=== PATIENT | female | born 1975 | race Caucasian/White ===

== ENCOUNTER 2021-05-29 03:56 | Inpatient (IN) | payer OTHER ==
--- NOTE | 2021-05-29 05:06 | ED ---
Altered Mental Status HPI - General Chief Complaint: Altered Mental Status Stated Complaint: AMS Time Seen by Provider: 05/29/21 03:57 Source: patient, EMS, RN notes reviewed, old records reviewed Mode of arrival: EMS Limitations: altered mental status - History of Present Illness Initial Comments: This is a 46-year-old female to the emergency department. Patient presents today with significant altered mental status. Patient is focused on leave in [facility] emergency department currently. Unable to give accurate history secondary to possible ingestion versus withdrawal. Patient presents from [place] by EMS for inappropriate behavior. MD Complaint: altered mental status, confusion, intoxication -: hour(s) Severity: moderate Consistency of Symptoms: getting worse Context: alcohol abuse, drug abuse, history of similar presentation Associated Symptoms: weakness Treatments Prior to Arrival: other pre-hospital medication (Patient possibly given Suboxone) - Related Data Home Medications Medication Instructions Recorded Confirmed Acetaminophen [Tylenol 8 Hour] 650 mg PO Q4H PRN 05/29/21 05/29/21 Calc/Magnes/Zinc/Vitamin D 1 tab PO TID PRN 05/29/21 05/29/21 ondansetron HCL [Zofran] 8 mg PO Q6H PRN 05/29/21 05/29/21 Previous Rx's Medication Instructions Recorded Folic Acid 1 mg PO DAILY #30 tab 06/02/21 Lactulose [Cephulac] 20 gm PO BID #60 ml 06/02/21 Multivitamins, Thera [Multivitamin 1 each PO DAILY #30 tab 06/02/21 (formulary)] Thiamine [Vitamin B-1] 100 mg PO BID-W/MEALS #14 tab 06/02/21 Allergies Allergy/AdvReac Type Severity Reaction Status Date / Time No Known Allergies Allergy Verified 05/29/21 07:09 Review of Systems ROS Statement: Those systems with pertinent positive or pertinent negative responses have been documented in the HPI. ROS Other: All systems not noted in ROS Statement are negative. 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 Absent: scleral icterus, conjunctival injection, periorbital swelling ENT exam: Present: normal exam, mucous membranes moist Neck exam: Present: normal inspection. Absent: tenderness, meningismus, lymphadenopathy Respiratory exam: Present: normal lung sounds bilaterally. Absent: respiratory distress, wheezes, rales, rhonchi, stridor Cardiovascular Exam: Present: regular rate, normal rhythm, normal heart sounds. Absent: systolic murmur, diastolic murmur, rubs, gallop, clicks GI/Abdominal exam: Present: soft, normal bowel sounds. Absent: distended, tenderness, guarding, rebound, rigid Extremities exam: Present: normal inspection, full ROM, normal capillary refill. Absent: tenderness, pedal edema, joint swelling, calf tenderness Back exam: Present: normal inspection Neurological exam: Present: alert, oriented X3, CN II-XII intact Psychiatric exam: Present: normal affect, normal mood Skin exam: Present: warm, dry, intact, normal color. Absent: rash Course Vital Signs 05/29/21 05/29/21 05/29/21 03:57 07:26 13:16 Temperature 98.2 F Pulse Rate 107 H 93 103 H Respiratory 22 18 18 Rate Blood Pressure 112/67 119/70 135/90 O2 Sat by Pulse 95 100 100 Oximetry - Reevaluation(s) Reevaluation #1: 05/29/21 05:33 Medical record is reviewed Reevaluation #2: 05/29/21 05:33 Spoke with [place] his states patient has been weaned off Suboxone and Ativan in his been acting bizarre lately not appropriate for normal withdrawal symptoms Medical Decision Making - Medical Decision Making 46 female not acting appropriately presents DF for evaluation of transaminitis mental status. Patient be admitted for further evaluation management - Lab Data Result diagrams: 05/31/21 08:12 06/01/21 05:36 Lab Results 05/29/21 05/29/21 05/29/21 Range/Units 05:23 05:23 05:23 WBC 2.8 L (3.8-10.6) k/uL RBC 4.05 (3.80-5.40) m/uL Hgb 13.1 (11.4-16.0) gm/dL Hct 38.5 (34.0-46.0) % MCV 95.1 (80.0-100.0) fL MCH 32.2 (25.0-35.0) pg MCHC 33.9 (31.0-37.0) g/dL RDW 16.2 H (11.5-15.5) % Plt Count 43 L (150-450) k/uL MPV 8.8 Neutrophils % Not Reportable Neutrophils % (Manual) 51 % Band Neuts % (Manual) 1 % Lymphocytes % Not Reportable Lymphocytes % (Manual) 39 % Monocytes % Not Reportable Monocytes % (Manual) 4 % Eosinophils % Not Reportable Eosinophils % (Manual) 5 % Basophils % Not Reportable Neutrophils # Not Reportable Neutrophils # (Manual) 1.40 (1.3-7.7) k/uL Lymphocytes # Not Reportable Lymphocytes # (Manual) 1.09 (1.0-4.8) k/uL Monocytes # Not Reportable Monocytes # (Manual) 0.11 (0-1.0) k/uL Eosinophils # Not Reportable Eosinophils # (Manual) 0.14 (0-0.7) k/uL Basophils # Not Reportable Nucleated RBCs 0 (0-0) /100 WBC Manual Slide Review Performed Anisocytosis Slight Sodium 134 L (137-145) mmol/L Potassium 3.5 (3.5-5.1) mmol/L Chloride 102 (98-107) mmol/L Carbon Dioxide 23 (22-30) mmol/L Anion Gap 9 mmol/L BUN 4 L (7-17) mg/dL Creatinine 0.53 (0.52-1.04) mg/dL Est GFR (CKD-EPI)AfAm >90 (>60 ml/min/1.73 sqM) Est GFR (CKD-EPI)NonAf >90 (>60 ml/min/1.73 sqM) Glucose 96 (74-99) mg/dL POC Glucose (mg/dL) (75-99) mg/dL POC Glu Upholstery Parts Sorter ID Calcium 8.8 (8.4-10.2) mg/dL Total Bilirubin 4.2 H (0.2-1.3) mg/dL AST 187 H (14-36) U/L ALT 51 H (4-34) U/L Alkaline Phosphatase 247 H (38-126) U/L Ammonia (<30) umol/L Total Protein 6.9 (6.3-8.2) g/dL Albumin 3.2 L (3.5-5.0) g/dL Urine Color Yellow Urine Appearance Cloudy H (Clear) Urine pH 7.0 (5.0-8.0) Ur Specific [place] 1.008 (1.001-1.035) Urine Protein 1+ H (Negative) Urine Glucose (UA) Negative (Negative) Urine Ketones Negative (Negative) Urine Blood Moderate H (Negative) Urine Nitrite Positive H (Negative) Urine Bilirubin Negative (Negative) Urine Urobilinogen <2.0 (<2.0) mg/dL Ur Leukocyte Esterase Large H (Negative) Urine RBC 5 (0-5) /hpf Urine WBC >182 H (0-5) /hpf Urine WBC Clumps Many H (None) /hpf Ur Squamous Epith Cells 1 (0-4) /hpf Urine Bacteria Many H (None) /hpf Salicylates <1.0 mg/dL Urine Opiates Screen Not Detected (NotDetected) Ur Oxycodone Screen Not Detected (NotDetected) Urine Methadone Screen Not Detected (NotDetected) Ur Propoxyphene Screen Not Detected (NotDetected) Acetaminophen <10.0 ug/mL Ur Barbiturates Screen Not Detected (NotDetected) U Tricyclic Antidepress Not Detected (NotDetected) Ur Phencyclidine Scrn Not Detected (NotDetected) Ur Amphetamines Screen Not Detected (NotDetected) U Methamphetamines Scrn Not Detected (NotDetected) U Benzodiazepines Scrn Detected H (NotDetected) Urine Cocaine Screen Not Detected (NotDetected) U Marijuana (THC) Screen Not Detected (NotDetected) Serum Alcohol <10 mg/dL 05/29/21 05/29/21 Range/Units 05:23 06:29 WBC (3.8-10.6) k/uL RBC (3.80-5.40) m/uL Hgb (11.4-16.0) gm/dL Hct (34.0-46.0) % MCV (80.0-100.0) fL MCH (25.0-35.0) pg MCHC (31.0-37.0) g/dL RDW (11.5-15.5) % Plt Count (150-450) k/uL MPV Neutrophils % Neutrophils % (Manual) % Band Neuts % (Manual) % Lymphocytes % Lymphocytes % (Manual) % Monocytes % Monocytes % (Manual) % Eosinophils % Eosinophils % (Manual) % Basophils % Neutrophils # Neutrophils # (Manual) (1.3-7.7) k/uL Lymphocytes # Lymphocytes # (Manual) (1.0-4.8) k/uL Monocytes # Monocytes # (Manual) (0-1.0) k/uL Eosinophils # Eosinophils # (Manual) (0-0.7) k/uL Basophils # Nucleated RBCs (0-0) /100 WBC Manual Slide Review Anisocytosis Sodium (137-145) mmol/L Potassium (3.5-5.1) mmol/L Chloride (98-107) mmol/L Carbon Dioxide (22-30) mmol/L Anion Gap mmol/L BUN (7-17) mg/dL Creatinine (0.52-1.04) mg/dL Est GFR (CKD-EPI)AfAm (>60 ml/min/1.73 sqM) Est GFR (CKD-EPI)NonAf (>60 ml/min/1.73 sqM) Glucose (74-99) mg/dL POC Glucose (mg/dL) 79 (75-99) mg/dL POC Glu Upholstery Parts Sorter ID Norma Escobar Calcium (8.4-10.2) mg/dL Total Bilirubin (0.2-1.3) mg/dL AST (14-36) U/L ALT (4-34) U/L Alkaline Phosphatase (38-126) U/L Ammonia 71 H (<30) umol/L Total Protein (6.3-8.2) g/dL Albumin (3.5-5.0) g/dL Urine Color Urine Appearance (Clear) Urine pH (5.0-8.0) Ur Specific [place] (1.001-1.035) Urine Protein (Negative) Urine Glucose (UA) (Negative) Urine Ketones (Negative) Urine Blood (Negative) Urine Nitrite (Negative) Urine Bilirubin (Negative) Urine Urobilinogen (<2.0) mg/dL Ur Leukocyte Esterase (Negative) Urine RBC (0-5) /hpf Urine WBC (0-5) /hpf Urine WBC Clumps (None) /hpf Ur Squamous Epith Cells (0-4) /hpf Urine Bacteria (None) /hpf Salicylates mg/dL Urine Opiates Screen (NotDetected) Ur Oxycodone Screen (NotDetected) Urine Methadone Screen (NotDetected) Ur Propoxyphene Screen (NotDetected) Acetaminophen ug/mL Ur Barbiturates Screen (NotDetected) U Tricyclic Antidepress (NotDetected) Ur Phencyclidine Scrn (NotDetected) Ur Amphetamines Screen (NotDetected) U Methamphetamines Scrn (NotDetected) U Benzodiazepines Scrn (NotDetected) Urine Cocaine Screen (NotDetected) U Marijuana (THC) Screen (NotDetected) Serum Alcohol mg/dL Disposition Clinical Impression: Altered mental status, Transaminitis, Hyperbilirubinemia Disposition: ADMITTED IP TO THIS [facility] Condition: Fair Is patient prescribed a controlled substance at d/c from ED?: No
[2021-05-29] MEDS ORDERED: SODIUM CHLORIDE 0.9% 500 ML 500 ML IV ONE (05:13)
[2021-05-29] MEDS ORDERED: LORazepam 2 MG/ML INJ IV STA (05:13)
[2021-05-29] MEDS ORDERED: SODIUM CHLORIDE 0.9% 1,000 ML IV ONE (05:13)
[2021-05-29] MEDS ORDERED: cloNIDine 0.3 MG/24HR PATCH TRANSDERM ONE (05:30)
[2021-05-29 06:10] LABS: Anisocytosis Slight; HCT 38.5 % (34.0-46.0); HGB 13.1 gm/dL (11.4-16.0); MCH 32.2 pg (25.0-35.0); MCHC 33.9 g/dL (31.0-37.0); MCV 95.1 fL (80.0-100.0); Mean Platelet Volume 8.8; RBC 4.05 m/uL (3.80-5.40); RDW 16.2 % (11.5-15.5); WBC 2.8 k/uL (3.8-10.6)
[2021-05-29 06:31] LABS: Glucose,Whole Blood 79 mg/dL (75-99)
[2021-05-29 07:05] LABS: ALT 51 U/L (4-34); AST 187 U/L (14-36); Acetaminophen <10.0 ug/mL; African American GFR (CKD) >90 (>60 ml/min/1.73 sqM); Albumin 3.2 g/dL (3.5-5.0); Alcohol <10 mg/dL; Alkaline Phosphatase 247 U/L (38-126); Anion Gap 9 mmol/L; Blood Urea Nitrogen 4 mg/dL (7-17); Calcium 8.8 mg/dL (8.4-10.2); Carbon Dioxide 23 mmol/L (22-30); Chloride 102 mmol/L (98-107); Glucose 96 mg/dL (74-99); Non-African American GFR(CKD) >90 (>60 ml/min/1.73 sqM); Potassium 3.5 mmol/L (3.5-5.1); Salicylate <1.0 mg/dL; Sodium 134 mmol/L (137-145); Total Bilirubin 4.2 mg/dL (0.2-1.3); Total Protein 6.9 g/dL (6.3-8.2)
[2021-05-29] MEDS ORDERED: LORazepam 2 MG/ML INJ IV PRN ×2 (07:10→12:54)
[2021-05-29] MEDS ORDERED: ONDANSETRON 4 MG/2 ML VIAL IVP PRN (07:10)
[2021-05-29] MEDS ORDERED: MORPHINE SULFATE 4 MG/ML SYRINGE IV PRN (07:10)
[2021-05-29] MEDS ORDERED: NALOXONE 0.4 MG/ML 1 ML VIAL IV PRN (07:10)
[2021-05-29 07:16] LABS: Appearance,Urine Cloudy (Clear); Bacteria,Urine Many /hpf; Bilirubin,Urine Negative (Negative); Blood,Urine Moderate (Negative); Color,Urine Yellow; Glucose,Urine (UA) Negative (Negative); Ketones,Urine Negative (Negative); Leukocyte Esterase,Urine Large (Negative); Nitrite,Urine Positive (Negative); Protein,Urine 1+ (Negative); RBC,Urine 5 /hpf (0-5); Specific Gravity,Urine 1.008 (1.001-1.035); Squamous Epithelial Cell,Urine 1 /hpf (0-4); Urobilinogen,Urine <2.0 mg/dL (<2.0); WBC,Urine >182 /hpf (0-5)
[2021-05-29] MEDS: SODIUM CHLORIDE 0.9% 1,000 ML IV SCH ×3 (07:29→23:35)
[2021-05-29 07:51] LABS: Amphetamine Screen,Urine Not Detected (NotDetected); Barbiturate Screen,Urine Not Detected (NotDetected); Benzodiazepines Screen,Urine Detected (NotDetected); Cocaine Screen,Urine Not Detected (NotDetected); Methadone Screen, Urine Not Detected (NotDetected); Opiate Screen,Urine Not Detected (NotDetected); Oxycodone Screen, Urine Not Detected (NotDetected); Phencyclidine Screen,Urine Not Detected (NotDetected); Tricyclic Antidepressant,Urine Not Detected (NotDetected); Urn Cannabinoid Scrn Not Detected (NotDetected)
[2021-05-29] MEDS ORDERED: diazePAM 5 MG TAB PO STA (08:13)
--- NOTE | 2021-05-29 09:30 | P.HPIM ---
History of Present Illness H&P Date: 05/29/21 This is a 46-year-old female with past medical history significant for heavy alcohol abuse that presented to the emergency room from [place] with reported hallucination and altered mental status. Patient was seen and evaluated by me in the ER. She is awake and alert. She is only oriented to herself. She appeared confused and was not able to provide any significant history. She told me that she's been drinking vodka heavily for the last 3 years and usually she drinks ''a pound and a half''. Patient was evaluated in the ER and initial lab work showed evidence of underlying UTI with elevated ammonia level. The patient is not known to have end-stage liver disease at least in the medical record. Physical exam did not show chronic liver disease stigmata Review of Systems Review of system: 14 points review of systems were obtained and were negative except to what were mentioned in the HPI. 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 History of Any Multi-Drug Resistant Organisms: None Reported Past Surgical History: No Surgical Hx Reported Smoking Status: Current every day smoker Past Alcohol Use History: Abuse Past Drug Use History: Cocaine, Heroin, Marijuana, Prescription Drug Abuse Medications and Allergies Home Medications Medication Instructions Recorded Confirmed Type Acetaminophen [Tylenol 8 Hour] 650 mg PO Q4H PRN 05/29/21 05/29/21 History Calc/Magnes/Zinc/Vitamin D 1 tab PO TID PRN 05/29/21 05/29/21 History Chlorpheniramine Maleate 4 mg PO Q4H PRN 05/29/21 05/29/21 History [Chlor-Trimeton] LORazepam [Ativan] 1 mg PO ONCE PRN 05/29/21 05/29/21 History Loperamide HCl [Imodium A-D] 4 mg PO QID PRN 05/29/21 05/29/21 History cloNIDine HCL [Catapres] 0.1 - 0.3 mg PO Q4H PRN MDD over 05/29/21 05/29/21 History 160/100 ondansetron HCL [Zofran] 8 mg PO Q6H PRN 05/29/21 05/29/21 History Allergies Allergy/AdvReac Type Severity Reaction Status Date / Time No Known Allergies Allergy Verified 05/29/21 07:09 Physical Exam Vitals: Vital Signs Temp Pulse Resp BP Pulse Ox 05/29/21 07:26 93 18 119/70 100 05/29/21 03:57 98.2 F 107 H 22 112/67 95 Intake and Output 05/28/21 05/29/21 05/29/21 22:59 06:59 14:59 Other: Weight 99.79 kg General: The patient is awake and alert, in no distress Eye: there is normal conjunctiva bilaterally. Neck: The neck is supple, there is no JVD. Cardiovascular: Normal S1-S2, no S3-S4, no murmurs. Respiratory: Lungs clear to auscultation bilaterally Gastrointestinal: Abdomen is soft, nontender Musculoskeletal: There is no pedal edema. Neurological:. Speech is normal. Skin: Skin is warm and dry Results CBC & Chem 7: 05/29/21 05:23 05/29/21 05:23 Labs: Abnormal Lab Results - Last 24 Hours (Table) 05/29/21 05/29/21 05/29/21 Range/Units 05:23 05:23 05:23 WBC 2.8 L (3.8-10.6) k/uL RDW 16.2 H (11.5-15.5) % Sodium 134 L (137-145) mmol/L BUN 4 L (7-17) mg/dL Total Bilirubin 4.2 H (0.2-1.3) mg/dL AST 187 H (14-36) U/L ALT 51 H (4-34) U/L Alkaline Phosphatase 247 H (38-126) U/L Ammonia (<30) umol/L Albumin 3.2 L (3.5-5.0) g/dL Urine Appearance Cloudy H (Clear) Urine Protein 1+ H (Negative) Urine Blood Moderate H (Negative) Urine Nitrite Positive H (Negative) Ur Leukocyte Esterase Large H (Negative) Urine WBC >182 H (0-5) /hpf Urine WBC Clumps Many H (None) /hpf Urine Bacteria Many H (None) /hpf U Benzodiazepines Scrn Detected H (NotDetected) 05/29/21 Range/Units 05:23 WBC (3.8-10.6) k/uL RDW (11.5-15.5) % Sodium (137-145) mmol/L BUN (7-17) mg/dL Total Bilirubin (0.2-1.3) mg/dL AST (14-36) U/L ALT (4-34) U/L Alkaline Phosphatase (38-126) U/L Ammonia 71 H (<30) umol/L Albumin (3.5-5.0) g/dL Urine Appearance (Clear) Urine Protein (Negative) Urine Blood (Negative) Urine Nitrite (Negative) Ur Leukocyte Esterase (Negative) Urine WBC (0-5) /hpf Urine WBC Clumps (None) /hpf Urine Bacteria (None) /hpf U Benzodiazepines Scrn (NotDetected) Assessment and Plan Assessment: 1. Acute toxic metabolic encephalopathy secondary to below 2. Acute hepatic encephalopathy 3. Urinary tract infection 4. Heavy alcohol abuse with withdrawal on presentation 5. Hallucination with possible underlying psychosis disorder 6. Neutropenia, probably secondary to chronic alcohol abuse 7. Acute alcoholic hepatitis Today, I reviewed her medication list and lab work results Start IV Rocephin 2 g daily awaiting urine culture Lactulose 20 mg 4 times a day and repeat ammonia level in the morning Continue IV fluid hydration IV Ativan as needed per CIWA protocol Psychiatry consulted for further evaluation Continue supportive care otherwise and repeat lab work in the morning.
[2021-05-29] MEDS: LACTULOSE 20 GM/30 ML CUP PO SCH ×4 (10:31→21:11)
[2021-05-29] MEDS ORDERED: THIAMINE 100 MG TAB PO SCH (12:45)
[2021-05-29 12:52] LABS: Band Neutrophils % 1 %; Eosinophils # (M) 0.14 k/uL (0-0.7); Lymphocytes # (M) 1.09 k/uL (1.0-4.8); Monocytes # (M) 0.11 k/uL (0-1.0); Neutrophils % (M) 51 %; Nucleated Red Blood Cells 0 /100 WBC (0-0); Total Cells Counted 100
[2021-05-29 12:54] LABS: Platelet Count 43 k/uL (150-450)
[2021-05-29] MEDS ORDERED: THIAMINE 100 MG/ML 2 ML VIAL IM STA (12:54)
--- NOTE | 2021-05-29 12:59 | P.CN ---
Psychiatric Consult - . Consult date: 05/29/21 Consult:: 05/29/21 11:32 IDENTIFYING DATA: This patient is a 46-year-old female, single, lives alone in a house and has no kids. REASON FOR REFERRAL: Psychiatry was consulted for ["psychosis"] HISTORY OF PRESENT ILLNESS: The patient presented to the hospital [with altered mental status and apparently was trying to leave the ER. Patient at that time was a poor historian. [facility]. ER report also mentioned that patient has been weaned off ativan and suboxone and has been acting bizarre since. Patient had an elevation in her LFTs, elevated ammonia levels and also was positive for a UTI. Patients nurse claims that patient was confused and was attempting to rip out her IV lines. PAtient was seen at the bedside and was sleepy howevere awoken by caption writer. She appeared to be confused and did not know todays date or where she was, she ebeleived that she was on "DEquindre and something" and did not know she was in a hospital. She was a poor historian and had poor concentration. She states that she came from a [place] party. She admitted to using Benzos off the street and also states that she drinks etoh heavily approximately 0.5 to 1 fifth/day of vodka. She admits to w/d sx currently of tremors and states that she does have a hx of complicated w/d and serzures. She deneis any depression or anxiety today]. At this time patient denies any suicidal or homical ideations, intent or plan. Patient denies any auditory, visual hallucinations and denies any paranoia or delusions. Patients admits to using etoh and benzosas described above. UDS positive for BZD. BAL was negative on admission. PAST PSYCHIATRIC HISTORY: Patient has a a history of [etoh and polysubstance abuse]. [Patient denies being on any psychiatric medications.] She does claim that she sees a doctor near [place] Dr. Barrera who perscribes her suboxone. 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 CHEMICAL DEPENDENCY HISTORY: as per HPI. FAMILY PSYCHIATRIC/SUBSTANCE USE HISTORY: [denies] SOCIAL HISTORY: Patient was born and raised in [[place], [place]. She states that she completed up to the 12th grade in school. She states that she worked s [employer] in the past. she lives alone in a house, no kids and is single]. MENTAL STATUS EXAM: General Appearance: Patient appears to be overweight, stated age is alert, confused and difficult to redirect. Patient appears to have [fair] hygiene and grooming wearing hospital gown with [poor] eye contact. Behavior: [Patient is calmly lying in bed without any agitated behavior.] confused Speech: Patient's speech is fluent and nonpressured. monotone and concrete Mood/Affect: Patient reports their mood is "[fine]", affect is congruent Suicidality/Homicidality: Patient denies having any suicidal or homicidal ideation intent or plan. Perceptions: Patient denies any visual hallucinations [and denies any auditory hallucinations] Though content/process: poor historian, confused, illogical at tiems. Memory and concentration: AOX1, does not know where she is or what day it is today. Cannot spell "WORLD" backwards. poor concetraton and memory recall. 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 -Patient DOES NOT have decision making capacity at this time and is unable to reason through and communicate/appreciate the risks, benefits and alternatives to treatment. -Delirium precautions recommended with patient including - avoiding use of narcotics and COAL PULVERIZER OPERATOR sedatives, limit anticholinergic medications when possible, frequent re-orientation, minimize use of restraints, open window shades during the day and close them at night -Would recommend the following medication changes/additions: start Valium scheduled 5 mg q8hr prn for etoh/bzd w/d. melatonin 5 mg qhs prn for sleep. -CIWA protocol with PRN Ativan for alcohol withdrawal. Continue to monitor vital signs. -Continue 1:1 sitter for safety -gas pit worker to provide patient with outpatient mental health/psychiatry resources for appropriate follow up upon discharge] -Continuous Improvement Director spoke with patient about substance abuse and the harmful effects on medical and mental health.] -gas pit worker to provide patient substance use treatment resources including AA/NA meetings in the community. -Communicated plan to patient's nurse]. Nurse will be contacting Hospitalist to update Ativan orders to match CIWA. -Will continue to follow along -Please contact with any questions.
[2021-05-29] MEDS: LORazepam 2 MG/ML INJ IV PRN ×2 (13:06→15:12)
[2021-05-29] MEDS: MULTIVITAMINS, THERA 1 EACH TAB PO SCH (14:07)
[2021-05-29] MEDS: NICOTINE 14MG/24HR PATCH TRANSDERM SCH (14:07)
[2021-05-29] MEDS: FOLIC ACID 1 MG TAB PO SCH (14:07)
[2021-05-29] MEDS: THIAMINE 100 MG TAB PO SCH (17:10)
[2021-05-29] MEDS: diazePAM 5 MG TAB PO SCH ×2 (17:15→23:34)
[2021-05-30] MEDS: LACTULOSE 20 GM/30 ML CUP PO SCH ×4 (08:22→23:20)
[2021-05-30] MEDS: NICOTINE 14MG/24HR PATCH TRANSDERM SCH (08:22)
[2021-05-30] MEDS: THIAMINE 100 MG TAB PO SCH ×2 (08:22→18:50)
[2021-05-30] MEDS: MULTIVITAMINS, THERA 1 EACH TAB PO SCH (08:22)
[2021-05-30] MEDS: diazePAM 5 MG TAB PO SCH ×2 (08:22→15:43)
[2021-05-30] MEDS: SODIUM CHLORIDE 0.9% 1,000 ML IV SCH ×2 (08:22→15:42)
[2021-05-30] MEDS: FOLIC ACID 1 MG TAB PO SCH (08:22)
[2021-05-30 11:28] LABS: Basophils % (A) 1 %; Eosinophils # (A) 0.1 k/uL (0-0.7); Eosinophils % (A) 3 %; HCT 38.5 % (34.0-46.0); HGB 12.5 gm/dL (11.4-16.0); Hypochromasia Slight; Lymphocytes # (A) 0.7 k/uL (1.0-4.8); Lymphocytes % (A) 41 %; MCH 32.2 pg (25.0-35.0); MCHC 32.5 g/dL (31.0-37.0); MCV 99.3 fL (80.0-100.0); Macrocytosis Slight; Monocytes # (A) 0.1 k/uL (0-1.0); Monocytes % (A) 9 %; Neutrophils # (A) 0.7 k/uL (1.3-7.7); Neutrophils % (A) 44 %; RBC 3.88 m/uL (3.80-5.40); RDW 15.8 % (11.5-15.5); WBC 1.6 k/uL (3.8-10.6)
[2021-05-30 12:00] LABS: Platelet Count 43 k/uL (150-450)
--- NOTE | 2021-05-30 12:32 | P.PN ---
Progress Note - Text Progress Note Date: 05/30/21 Interval History: Patient was seen today for psychiatric follow-up patient's delirium and alcohol and benzodiazepine withdrawal. Patients are states that patient continues to be confused. Patient's vital signs appeared to be improving and she has been taking Valium every 8 hours 5 mg for the withdrawals. She was seen at the bedside and appeared to be fairly hostile and irritable with the mortgage underwriter today. She states that "Im going to fuckin kill you!" To mortgage underwriter and states that he is "playing games with me". She was fairly vague and believe that mortgage underwriter has been manipulating her care and her medications. She appeared to be fairly paranoid and hostile. She was fairly delusional as well today. She appears to have very poor insight into her condition and need for treatment. She claims that she has been sleeping on and off and has a fair appetite. She was not oriented to place or date today but to name only. poor attention span. At this time patient denies any suicidal, intent or plan. Patient denies any auditory, visual hallucinations and denies any paranoia or delusions. Patient denies any side effects from the medications and has been compliant with meds. Mental Status Exam: General Appearance: Patient appears to be overweight, stated age is alert, confused and difficult to redirect, improving mildly. Patient appears to have fair hygiene and grooming wearing hospital gown with poor eye contact. Behavior: Patient is calmly lying in bed without any agitated behavior. c onfused. hostile to mortgage underwriter Speech: Patient's speech is fluent and nonpressured. monotone and concrete Mood/Affect: Patient reports their mood is "not good", affect is congruent Suicidality/Homicidality: Patient denies having any suicidal or homicidal ideation intent or plan. Perceptions: Patient denies any visual hallucinations and denies any auditory hallucinations Though content/process: poor historian, confused, illogical at tiems. paranoia. delusional Memory and concentration: AOX1, does not know where she is or what day it is today. poor concetraton and memory recall. 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 -Patient DOES NOT have decision making capacity at this time and is unable to reason through and communicate/appreciate the risks, benefits and alternatives to treatment. -Delirium precautions recommended with patient including - avoiding use of narcotics and STEAM ENGINEER sedatives, limit anticholinergic medications when possible, frequent re-orientation, minimize use of restraints, open window shades during the day and close them at night -Would recommend the following medication changes/additions: cont Valium scheduled 5 mg q8hr for etoh/bzd w/d, will decrease down to 5 mg BID for tomorrow and continue tapering down over the weekend. melatonin 5 mg qhs prn for sleep. added prolixin 2 mg bid for psychosis/aggression. Prolixin prn for agitation/psychosis. -CIWA protocol with PRN Ativan for alcohol withdrawal. Continue to monitor vital signs. -Continue 1:1 sitter for safety for at least one more day then re-evaluate. -sand car worker to provide patient with outpatient mental health/psychiatry resources for appropriate follow up upon discharge] -sand car worker to provide patient substance use treatment resources including AA/NA meetings in the community. -Communicated plan to patient's nurse. -Will continue to follow along -Please contact with any questions.
[2021-05-30 12:43] LABS: Magnesium 1.6 mg/dL (1.5-2.4)
[2021-05-30 13:53] LABS: African American GFR (CKD) 124.6 (60.0-200.0); Albumin 3.2 g/dL (3.8-4.9); Albumin/Globulin Ratio 1.01 (1.60-3.17); BUN/Creat Ratio 4.59 Ratio (12.00-20.00); Carbon Dioxide 17.1 mmol/L (21.6-31.8); Globulin 3.2 g/dL (1.6-3.3); Non-African American GFR(CKD) 107.5 (60.0-200.0); Potassium 4.9 mmol/L (3.5-5.5); Total Bilirubin 3.3 mg/dL (0.30-1.20); Total Protein 6.3 g/dL (6.2-8.2)
--- NOTE | 2021-05-30 14:38 | P.PN ---
Subjective Patient is awake and alert today. She is very confused and cursing the entire time. Objective - Vital Signs Vital signs: Vital Signs Temp 98.1 F 05/30/21 13:10 Pulse 78 05/30/21 13:10 Resp 18 05/30/21 13:10 BP 134/87 05/30/21 13:10 Pulse Ox 98 05/30/21 13:10 Intake & Output 05/29/21 05/30/21 05/30/21 18:59 06:59 18:59 Intake Total 340 Balance 340 Weight 99.79 kg Intake: Oral 340 Other: Voiding Method Toilet Toilet # Voids 2 3 # Bowel Movements 2 - Exam General: The patient is awake and alert, in no distress Eye: there is normal conjunctiva bilaterally. Neck: The neck is supple, there is no JVD. Cardiovascular: Normal S1-S2, no S3-S4, no murmurs. Respiratory: Lungs clear to auscultation bilaterally Gastrointestinal: Abdomen is soft, nontender Musculoskeletal: There is no pedal edema. Neurological:. Speech is normal. Skin: Skin is warm and dry - Labs CBC & Chem 7: 05/30/21 10:56 05/30/21 05:55 Labs: Abnormal Lab Results - Last 24 Hours (Table) 05/30/21 05/30/21 05/30/21 Range/Units 05:55 05:55 10:56 WBC 1.6 L (3.8-10.6) k/uL RDW 15.8 H (11.5-15.5) % Plt Count 43 L (150-450) k/uL Neutrophils # 0.7 L (1.3-7.7) k/uL Lymphocytes # 0.7 L (1.0-4.8) k/uL Carbon Dioxide 17.1 L (21.6-31.8) mmol/L BUN 3.0 L (9.0-27.0) mg/dL BUN/Creatinine Ratio 4.59 L (12.00-20.00) Ratio Calcium 8.0 L (8.7-10.3) mg/dL Total Bilirubin 3.30 H (0.30-1.20) mg/dL AST 171 H (13-35) U/L ALT 50 H (8-44) U/L Alkaline Phosphatase 223 H (41-126) U/L Ammonia 39 H (<30) umol/L Albumin 3.2 L (3.8-4.9) g/dL Albumin/Globulin Ratio 1.01 L (1.60-3.17) g/dL Microbiology - Last 24 Hours (Table) 05/29/21 05:23 Urine Culture - Preliminary Urine,Voided Assessment and Plan Assessment: 1. Acute toxic metabolic encephalopathy secondary to below 2. Acute hepatic encephalopathy with delirium 3. Urinary tract infection, awaiting urine culture 4. Heavy alcohol abuse with withdrawal on presentation 5. Hallucination with possible underlying psychosis disorder 6. Neutropenia and thrombocytopenia, probably secondary to chronic alcohol abuse 7. Acute alcoholic hepatitis Today, I reviewed her medication list and lab work results Continue IV Rocephin 2 g daily awaiting urine culture Lactulose 20 mg 4 times a day. Morning pending the Continue IV fluid hydration IV Ativan as needed per CIWA protocol Psychiatry consulted for further evaluation, appreciate recommendations and medication adjustment reforestation worker consulted Continue supportive care otherwise and repeat lab work in the morning.
[2021-05-31] MEDS: diazePAM 5 MG TAB PO SCH ×3 (00:17→20:49)
[2021-05-31 08:25] LABS: HCT 42.8 % (34.0-46.0); HGB 13.5 gm/dL (11.4-16.0); Hypochromasia Slight; MCH 31.8 pg (25.0-35.0); MCHC 31.5 g/dL (31.0-37.0); MCV 100.8 fL (80.0-100.0); Macrocytosis Slight; Mean Platelet Volume 9.3; RBC 4.24 m/uL (3.80-5.40); RDW 15.6 % (11.5-15.5); WBC 1.5 k/uL (3.8-10.6)
[2021-05-31 08:29] LABS: Platelet Count 40 k/uL (150-450)
[2021-05-31] MEDS: NICOTINE 14MG/24HR PATCH TRANSDERM SCH (08:36)
[2021-05-31] MEDS: LACTULOSE 20 GM/30 ML CUP PO SCH ×5 (08:36→20:50)
[2021-05-31] MEDS: THIAMINE 100 MG TAB PO SCH ×2 (08:36→17:32)
[2021-05-31] MEDS: FOLIC ACID 1 MG TAB PO SCH (08:36)
[2021-05-31] MEDS: MULTIVITAMINS, THERA 1 EACH TAB PO SCH (08:36)
--- NOTE | 2021-05-31 12:54 | P.PN ---
Subjective Patient is doing better today. Her mentation is improving compared to yesterday. Interestingly, her ammonia level is worse. I have ordered lactulose 4 times a day Objective - Vital Signs Vital signs: Vital Signs Temp 98.5 F 05/31/21 11:28 Pulse 87 05/31/21 11:28 Resp 16 05/31/21 11:28 BP 120/78 05/31/21 11:28 Pulse Ox 94 L 05/31/21 11:28 Intake & Output 05/30/21 05/31/21 05/31/21 18:59 06:59 18:59 Intake Total 1560 Balance 1560 Intake: Intake, IV Titration 1560 Amount Sodium Chloride 0.9% 1, 1560 000 ml @ 130 mls/hr IV . Q7H42M [facility] Rx#:[id number] Other: Voiding Method Toilet Toilet Toilet # Voids 3 1 - Exam General: The patient is awake and alert, in no distress Eye: there is normal conjunctiva bilaterally. Neck: The neck is supple, there is no JVD. Cardiovascular: Normal S1-S2, no S3-S4, no murmurs. Respiratory: Lungs clear to auscultation bilaterally Gastrointestinal: Abdomen is soft, nontender Musculoskeletal: There is no pedal edema. Neurological:. Speech is normal. Skin: Skin is warm and dry - Labs CBC & Chem 7: 05/31/21 08:12 05/30/21 05:55 Labs: Abnormal Lab Results - Last 24 Hours (Table) 05/30/21 05/31/21 05/31/21 Range/Units 05:55 08:12 08:12 WBC 1.5 L (3.8-10.6) k/uL MCV 100.8 H (80.0-100.0) fL RDW 15.6 H (11.5-15.5) % Plt Count 40 L (150-450) k/uL Carbon Dioxide 17.1 L (21.6-31.8) mmol/L BUN 3.0 L (9.0-27.0) mg/dL BUN/Creatinine Ratio 4.59 L (12.00-20.00) Ratio Calcium 8.0 L (8.7-10.3) mg/dL Total Bilirubin 3.30 H (0.30-1.20) mg/dL AST 171 H (13-35) U/L ALT 50 H (8-44) U/L Alkaline Phosphatase 223 H (41-126) U/L Ammonia 57 H (<30) umol/L Albumin 3.2 L (3.8-4.9) g/dL Albumin/Globulin Ratio 1.01 L (1.60-3.17) g/dL Microbiology - Last 24 Hours (Table) 05/29/21 05:23 Urine Culture - Preliminary Urine,Voided Gram Neg Bacilli Assessment and Plan Assessment: 1. Acute toxic metabolic encephalopathy secondary to below 2. Acute hepatic encephalopathy with delirium 3. Urinary tract infection, awaiting urine culture to finalize 4. Heavy alcohol abuse with withdrawal on presentation 5. Hallucination with possible underlying psychosis disorder 6. Neutropenia and thrombocytopenia, probably secondary to chronic alcohol abuse 7. Acute alcoholic hepatitis Today, I reviewed her medication list and lab work results Continue IV Rocephin 2 g daily awaiting urine culture Lactulose 20 mg 4 times a day. Repeat ammonia in the morning IV Ativan as needed per CIWA protocol. Decrease Valium dose to 5 mg twice daily and wean off tomorrow Psychiatry consulted for further evaluation, appreciate recommendations and medication adjustment optical worker consulted Continue supportive care otherwise and repeat lab work in the morning.
[2021-05-31 21:13] VITALS: RESP 18
--- NOTE | 2021-05-31 23:00 | CONS ---
CONSULTATION DATE OF SERVICE: 05/31/2021 PURPOSE FOR CONSULTATION: Evaluate for possible psychosis. INTERVAL HISTORY: I refer the reader to Dr. Quesada's two previous consultation notes. I would also note that Dr. Ayon indicated that the patient's mentation is improving compared to previous days. As noted in previous notes, patient was showing confusion as well as mood difficulties with intense anger and cursing at staff. She is much better today, according to Nursing. Her thoughts are clear. When I talked to her today, there was still some disjointed thinking. According to the patient, she had been admitted to [facility] this past Wednesday, and 4 days prior to that she had stopped taking Suboxone. She said she has been on Suboxone for 2 to 3 years relating to past problems with opioids. According to Nursing, the patient had indicated in their conversation that she has had significant use of any opioid that she could obtain, whether street drugs such as heroin or opioid pain medications. When I talked to the patient today, she said she had not used any opioids in the last 2 to 3 years. She said that when she was at [facility] the reason for transfer from their facility to the hospital was that she was having auditory and visual hallucinations. She noted that she continued to have problems over the last few days, though today she said she is not experiencing any auditory or visual hallucinations. She said that when she has been on Antabuse, it has stopped her from drinking. I made an effort to review her drinking history, though she did not provide consistent information. She was not able to say much about the circumstances that led to her going into [facility]. She noted that she had been in [facility] in December for one month. She notes that she had been drinking one fifth of alcohol per day. She notes that she has cirrhosis. She said that she has been on Antabuse in the past though did not use Antabuse due to cirrhosis. She indicated that she had used Vivitrol at some point. She indicates that she lives alone. She notes today that her mood is improved, she has a better outlook. She says she anticipates returning to her home, though knows that she needs to go to [facility] to get some of her possessions. She was vague about whether she would consider going into another inpatient substance use program when she is medically stable from this hospitalization. Currently she is on a withdrawal protocol with Valium and Ativan, though she is not on any other psychotropic medications. MENTAL STATUS EXAM: Patient was sitting up in bed. She gave fairly good eye contact. She was somewhat restless. She answered questions with brief responses. Her thoughts were generally appropriate to the questions asked, though at times her answers were vague. Sometimes she gave contradictory information and it was hard to follow her train of thought. For the most part, she communicated in a reasonably clear manner. Her affect was blunted, her mood dysphoric. She seemed somewhat distressed and had a worried manner. She denied having any auditory or visual hallucinations. She did not show response to internal stimuli. She voiced no thoughts of harm. On cognitive exam, she only made an effort to answer some of the questions. When I asked what facility she was in, she said she thought she was at a [facility] in [place]. When I asked the name, she said "[facility]." She thought the date was June 02, 2021. She was able to give the days of the week in reverse order without difficulty. ASSESSMENT: This 46-year-old female is diagnosed with alcohol dependence, acute alcohol withdrawal and delirium secondary to alcohol withdrawal. She is showing improvement in her cognitive function though continues to be mildly to moderately disoriented. It does appear that her cognitive issues wax and wane as she is showing improvement from withdrawal issues. There may be impact of her benzodiazepines that are also complicating issues of thought process. Whether or not she is able to make reasonable determination about best options for followup once she is medically stable is questionable at this point. I would continue the current treatment plan. I will continue to follow. MMODL / IJN: [id number] /
[2021-06-01] MEDS: LORazepam 2 MG/ML INJ IV PRN ×2 (01:23→19:48)
[2021-06-01 06:20] LABS: ALT 38 U/L (4-34); AST 89 U/L (14-36); African American GFR (CKD) >90 (>60 ml/min/1.73 sqM); Albumin 2.9 g/dL (3.5-5.0); Albumin/Globulin Ratio 0.8; Alkaline Phosphatase 235 U/L (38-126); Anion Gap 7 mmol/L; Blood Urea Nitrogen 4 mg/dL (7-17); Calcium 8.4 mg/dL (8.4-10.2); Carbon Dioxide 21 mmol/L (22-30); Chloride 110 mmol/L (98-107); Globulin 3.8 g/dL; Glucose 114 mg/dL (74-99); Non-African American GFR(CKD) >90 (>60 ml/min/1.73 sqM); Potassium 3.8 mmol/L (3.5-5.1); Sodium 138 mmol/L (137-145); Total Bilirubin 2.7 mg/dL (0.2-1.3); Total Protein 6.7 g/dL (6.3-8.2)
[2021-06-01] MEDS: LACTULOSE 20 GM/30 ML CUP PO SCH ×3 (08:29→19:48)
[2021-06-01] MEDS: MULTIVITAMINS, THERA 1 EACH TAB PO SCH (08:31)
[2021-06-01] MEDS: FOLIC ACID 1 MG TAB PO SCH (08:31)
[2021-06-01] MEDS: THIAMINE 100 MG TAB PO SCH ×2 (08:31→16:58)
[2021-06-01] MEDS: diazePAM 5 MG TAB PO SCH (08:32)
[2021-06-01] MEDS: NICOTINE 14MG/24HR PATCH TRANSDERM SCH (08:32)
--- NOTE | 2021-06-01 14:25 | P.PN ---
Subjective Patient was seen and evaluated by me today. She is doing fairly well. No evidence of confusion. Nursing staff informed me that patient has been refusing her lactulose for the last 2 days. Ammonia level increased to 60 this morning. I counseled the patient extensively regarding compliance with lactulose as prescribed. Patient informed me that she is willing to go to [place] tomorrow. Objective - Vital Signs Vital signs: Vital Signs Temp 98.5 F 06/01/21 11:31 Pulse 72 06/01/21 11:31 Resp 18 06/01/21 11:31 BP 115/77 06/01/21 11:31 Pulse Ox 97 06/01/21 11:31 Intake & Output 05/31/21 06/01/21 06/01/21 18:59 06:59 18:59 Intake Total 800 Balance 800 Intake: Oral 800 Other: Voiding Method Toilet Toilet Toilet # Voids 2 2 # Bowel Movements 2 - Exam General: The patient is awake and alert, in no distress Eye: there is normal conjunctiva bilaterally. Neck: The neck is supple, there is no JVD. Cardiovascular: Normal S1-S2, no S3-S4, no murmurs. Respiratory: Lungs clear to auscultation bilaterally Gastrointestinal: Abdomen is soft, nontender Musculoskeletal: There is no pedal edema. Neurological:. Speech is normal. Skin: Skin is warm and dry - Labs CBC & Chem 7: 05/31/21 08:12 06/01/21 05:36 Labs: Abnormal Lab Results - Last 24 Hours (Table) 06/01/21 06/01/21 Range/Units 05:36 05:36 Chloride 110 H (98-107) mmol/L Carbon Dioxide 21 L (22-30) mmol/L BUN 4 L (7-17) mg/dL Creatinine 0.36 L (0.52-1.04) mg/dL Glucose 114 H (74-99) mg/dL Total Bilirubin 2.7 H (0.2-1.3) mg/dL AST 89 H (14-36) U/L ALT 38 H (4-34) U/L Alkaline Phosphatase 235 H (38-126) U/L Ammonia 60 H (<30) umol/L Albumin 2.9 L (3.5-5.0) g/dL Microbiology - Last 24 Hours (Table) 05/29/21 05:23 Urine Culture - Final Urine,Voided Escherichia coli Assessment and Plan Assessment: 1. Acute toxic metabolic encephalopathy secondary to below 2. Acute hepatic encephalopathy with delirium, improved significantly since admission 3. Urinary tract infection, urine culture showed E. coli susceptible to ceftriaxone 4. Heavy alcohol abuse with withdrawal on presentation, now resolved 5. Hallucination with possible underlying psychosis disorder 6. Neutropenia and thrombocytopenia, probably secondary to chronic alcohol a buse 7. Acute alcoholic hepatitis Today, I reviewed her medication list and lab work results Transition antibiotic to oral Keflex Change Lactulose 20 mg to 3 times a day. IV Ativan as needed per CIWA protocol. Decrease Valium dose to 5 mg daily and wean off tomorrow Psychiatry consulted for further evaluation, appreciate recommendations and medication adjustment printing table worker consulted Continue supportive care otherwise and repeat lab work in the morning. Plan to transfer to [place] tomorrow
--- NOTE | 2021-06-01 21:33 | CONS ---
CONSULTATION DATE OF SERVICE: 06/01/2021. PURPOSE FOR CONSULTATION: Evaluate for possible psychosis. INTERVAL HISTORY: The patient has been doing fair. Staff noted that she continues to show improvement in cognition. She has not had further episodes of confusion. It is noted that when I talked to the patient, she was able to identify having hallucinations as the reason she was referred from [facility] to the hospital. When I noted that she had a very harsh negative attitude two days ago, which included swearing at various clinicians, the patient seemed surprised and not aware that she presented with that behavior. She reports that she slept fairly well last night. Her mood has improved by her report. She said that hallucinations have fully resolved. She anticipates return to [facility], though she was somewhat unclear about specifics. She said that it was her understanding she entered [facility] on Wednesday with a plan for detox which would be a 6-day admission. She was unclear about whether she would seek longer-term program on an inpatient basis. She indicated to Nursing in the day that her plan was to return to [facility], though she did not provide any details. At this point she has not had contact with [facility] and is unclear about bed availability. She was unclear about any longer-term planning that she might have. When I saw her today, she was oriented x3. She responded appropriately. She tended to be subdued in her manner. Her mood was reserved. She did not appear to be significantly distressed in any way. There was no indication of thought disorder. She voiced no thoughts of harm. ASSESSMENT: I will continue the current diagnosis and treatment plan. I advised the patient that I would anticipate tomorrow the social sciences chair working with her and contacting [facility] to coordinate as far as discharge planning. I reviewed alcohol withdrawal issues with the patient. It is noted she continues with Valium, though I would anticipate that Valium would be discontinued, as she is beyond the risk for delirium tremens or seizure related to alcohol withdrawal. She does not meet criteria for admission to the psychiatric unit. She is appropriate for referral to an inpatient substance use treatment program or for intensive outpatient substance abuse treatment. MMODL / TERESON: [id number] / MTDD
[2021-06-02] MEDS: FOLIC ACID 1 MG TAB PO SCH (07:41)
[2021-06-02] MEDS: MULTIVITAMINS, THERA 1 EACH TAB PO SCH (07:41)
[2021-06-02] MEDS: NICOTINE 14MG/24HR PATCH TRANSDERM SCH (07:42)
[2021-06-02] MEDS: THIAMINE 100 MG TAB PO SCH (07:42)
[2021-06-02] MEDS: LACTULOSE 20 GM/30 ML CUP PO SCH (07:44)
[2021-06-02] MEDS ORDERED: diazePAM 5 MG TAB PO SCH (09:00)
[2021-06-02 12:33] VITALS: BP 123/72; PULSE 91; TEMP 98.8
--- NOTE | 2021-06-02 12:43 | P.DS ---
Providers Date of admission: 05/29/21 07:11 Expected date of discharge: 06/02/21 Attending physician: Arturo Vitale MD Consults: 05/29/21 07:21 Consult Physician Routine Consulting Provider: Last Quesada Consult Reason/Comments: psychosis Do you want consulting provider notified?: Yes Primary care physician: Stated None Hospital Course: 1. Acute toxic metabolic encephalopathy secondary to below 2. Acute hepatic encephalopathy with delirium, improved significantly since admission 3. Urinary tract infection, urine culture showed E. coli susceptible to ceftriaxone 4. Heavy alcohol abuse with withdrawal on presentation, now resolved 5. Hallucination with possible underlying psychosis disorder 6. Neutropenia and thrombocytopenia, probably secondary to chronic alcohol abuse 7. Acute alcoholic hepatitis Patient admitted to the hospital for further management of her medical problems noted above. She will be discharged to [facility] in a stable condition Patient Condition at Discharge: Fair Plan - Discharge Summary New Discharge Prescriptions: New Multivitamins, Thera [Multivitamin (formulary)] 1 each PO DAILY #30 tab Lactulose [Cephulac] 20 gm PO BID #60 ml Folic Acid 1 mg PO DAILY #30 tab Thiamine [Vitamin B-1] 100 mg PO BID-W/MEALS #14 tab Continue ondansetron HCL [Zofran] 8 mg PO Q6H PRN PRN Reason: Nausea Acetaminophen [Tylenol 8 Hour] 650 mg PO Q4H PRN PRN Reason: Pain Calc/Magnes/Zinc/Vitamin D 1 tab PO TID PRN PRN Reason: cramps Discontinued LORazepam [Ativan] 1 mg PO ONCE PRN PRN Reason: Anxiety Loperamide HCl [Imodium A-D] 4 mg PO QID PRN PRN Reason: Loose Stool cloNIDine HCL [Catapres] 0.1 - 0.3 mg PO Q4H PRN MDD over 160/100 PRN Reason: Blood Pressure - High Chlorpheniramine Maleate [Chlor-Trimeton] 4 mg PO Q4H PRN PRN Reason: Allergy Symptoms Discharge Medication List Acetaminophen [Tylenol 8 Hour] 650 mg PO Q4H PRN 05/29/21 [History] Calc/Magnes/Zinc/Vitamin D 1 tab PO TID PRN 05/29/21 [History] ondansetron HCL [Zofran] 8 mg PO Q6H PRN 11/11/21 [History] Folic Acid 1 mg PO DAILY #30 tab 06/02/21 [Rx] Lactulose [Cephulac] 20 gm PO BID #60 ml 06/02/21 [Rx] Multivitamins, Thera [Multivitamin (formulary)] 1 each PO DAILY #30 tab 06/02/21 [Rx] Thiamine [Vitamin B-1] 100 mg PO BID-W/MEALS #14 tab 06/02/21 [Rx] Follow up Appointment(s)/Referral(s): None,Stated [Primary Care Provider] - 1-2 days Patient Instructions/Handouts: Altered Mental Status (ED) Discharge/Stand Alone Forms: AA Meetings [place], Who Do I Call?, Community Resources, Outpatient Counseling
== END 2021-06-02 15:30 | DRG 441 ==
LOC: EC 03:56 → 5NMEDONC 07:11
PROVIDERS: ADMIT Internal Medicine; ATTEND Internal Medicine
DX: K72.00 Acute and subacute hepatic failure without coma (principal); G92.8 Other toxic encephalopathy; F10.231 Alcohol dependence with withdrawal delirium; F13.231 Sedative, hypnotic or anxiolytic dependence with withdrawal delirium; N39.0 Urinary tract infection, site not specified; D69.59 Other secondary thrombocytopenia; K70.30 Alcoholic cirrhosis of liver without ascites; K70.10 Alcoholic hepatitis without ascites; Z20.822 Contact with and (suspected) exposure to COVID-19; F17.210 Nicotine dependence, cigarettes, uncomplicated; D70.9 Neutropenia, unspecified; F12.11 Cannabis abuse, in remission; F11.11 Opioid abuse, in remission; E80.6 Other disorders of bilirubin metabolism; B96.20 Unspecified Escherichia coli [E. coli] as the cause of diseases classified elsewhere; F14.11 Cocaine abuse, in remission; F29 Unspecified psychosis not due to a substance or known physiological condition; I10 Essential (primary) hypertension; E66.3 Overweight; Z68.34 Body mass index [BMI] 34.0-34.9, adult; Z71.41 Alcohol abuse counseling and surveillance of alcoholic; Z71.51 Drug abuse counseling and surveillance of drug abuser; Z60.2 Problems related to living alone; Z87.19 Personal history of other diseases of the digestive system; Z79.899 Other long term (current) drug therapy; T47.3X6A Underdosing of saline and osmotic laxatives, initial encounter; Z91.128 Patient's intentional underdosing of medication regimen for other reason; Y92.239 Unspecified place in hospital as the place of occurrence of the external cause
CPT/HCPCS: 36415; 80053; 80143; 80179; 80306; 80320; 81001; 82075; 82140; 83735; 85025; 85027; 87077; 87086; 87186; 87635; 96361; 96374; 99285